=== PATIENT | male | born 1960 | race Two or more races ===

== ENCOUNTER 2020-04-22 05:47 | Day surgery (SDC) | payer BC ==
--- NOTE | 2020-04-18 11:03 | Opthalmology H&P ---
Ophthalmology H&P H&P Chief Complaint: decreased vision in right eye HPI Vision Affects Ability to: read, focus/use eyes together, manage personal affairs HPI Narrative Blurry vision Exam Visual Acuity: OD Counting fingers@2ft OS 20/60 Tension: OD 19 OS 18 Eye Exam: normal OU: external exam, palpebral fissure-width, marginal reflex distance, levator function, corneas, anterior chambers, fundus exam; findings: lens - NS Cataracts OU Assessment/Plan Treatment Plan: cataract extraction w/ lens implant Goals of Treatment: improvement of vision, enhance quality of life Attestation Attestation The risks and benefits of the surgery as well as alternative procedures were explained to the patient in detail. Temo Sloan MD Apr 18, 2020 11:03
--- NOTE | 2020-04-18 11:04 | Pre-Procedure Note/Attestation ---
Pre-Procedure Note/Attestation Complete Prior to Procedure Planned Procedure: right Procedure Narrative: Cataract extraction with IOL implant right eye Indications for Procedure Pre-Operative Diagnosis: Nuclear sclerotic cataract right eye Attestation I attest that I discussed the nature of the procedure; its benefits; risks and complications; and alternatives (and the risks and benefits of such alternatives), prior to the procedure, with the patient (or the patient's legal loss prevention representative). I attest that, if there was a reasonable possibility of needing a blood transfusion, the patient (or the patient's legal loss prevention representative) was given the [facility] standardized written summary, pursuant to the [place] Blood Safety Act ([place] Health and Safety Code # 1645, as amended). I attest that I re-evaluated the patient just prior to the surgery and that there has been no change in the patient's H&P, except as documented below: Temo lSoan MD Apr 18, 2020 11:04
[2020-04-22] VITALS (9 sets, daily range): BP systolic 124–136; BP diastolic 69–79
[~2020-04-22] VITALS: Ht 180.3 cm; Wt 86.2 kg
[2020-04-22] MEDS: Phenylephrine 10% Opth Soln 5ml RIGHT EYE SCH ×3 (06:53→07:12)
[2020-04-22] MEDS: Tobramycin Op Soln 0.3% 5ml RIGHT EYE SCH ×3 (06:54→07:12)
[2020-04-22] MEDS: Diclofenac Sod 0.1% Op Soln RIGHT EYE SCH ×3 (06:54→07:12)
[2020-04-22] MEDS: Tropicamide 1% Opth 15ml Soln RIGHT EYE SCH ×3 (06:54→07:12)
[2020-04-22] MEDS ORDERED: Tetracaine 0.5% Opth 4ml Soln RIGHT EYE ONE (07:00)
[2020-04-22] MEDS ORDERED: Proparacaine 0.5% Opth Soln 15ml RIGHT EYE ONE (07:00)
[2020-04-22] MEDS ORDERED: Maxitrol Opth Oint 3.5gm ONE (07:00)
[2020-04-22] MEDS ORDERED: Akten 3.5% 1ml Btl RIGHT EYE ONE (07:00)
[2020-04-22] MEDS ORDERED: prednisoLONE acetate 1% Opth Susp 1ml ONE (07:00)
[2020-04-22] MEDS ORDERED: LISINOPRIL5 MG ORAL (07:16)
[2020-04-22] MEDS ORDERED: ATORVASTATIN CA20 MG ORAL (07:17)
[2020-04-22] MEDS ORDERED: Sodium Chloride 10ml vial INJ ONE (07:26)
[2020-04-22] MEDS ORDERED: Lidocaine 1% MPF 10mg/ml 5ml ONE ×2 (07:26→09:30)
[2020-04-22] MEDS ORDERED: Ketamine 500mg/10ml vial ONE (07:27)
[2020-04-22] MEDS ORDERED: Midazolam 2mg/2ml Inj ONE (07:28)
--- NOTE | 2020-04-22 07:33 | Anethesia Preoperative Eval ---
Anesthesia Pre-op PMH/ROS General Date of Evaluation: Apr 22, 2020 Time of Evaluation: 09:14 Anesthesiologist: Allyssa ASA Score: ASA 3 Mallampati Score Class I : Soft palate, uvula, fauces, pillars visible Class II: Soft palate, uvula, fauces visible Class III: Soft palate, base of uvula visible Class IV: Only hard plate visible Mallampati Classification: Class II Surgeon: Nathalia Diagnosis: Cataract OD Surgical Procedure: Cat Ext IOL OD Anesthesia History: none Family History: no anesthesia problems Allergies: Coded Allergies: No Known Allergies (Unverified , 04/18/20) Medications: see eMAR Patient NPO?: Yes Past Medical History Cardiovascular: Reports: HTN, other - HL HEENT: Reports: cataract (L), cataract (R) Anesthesia Pre-op Phys. Exam Physician Exam Last Vital Signs Date Time Temp Pulse Resp B/P (MAP) Pulse Ox O2 Delivery O2 Flow Rate FiO2 04/22/20 07:13 Room Air 04/22/20 06:58 98.0 59 18 129/76 98 Constitutional: NAD Neurologic: CN 2-12 intact Cardiovascular: RRR Respiratory: CTA Gastrointestinal: S/NT/ND Airway Exam Mallampati Score: Class II MO: full ROM: limited Teeth: missing, intact Anesthesia Pre-op A/P Risk Assessment & Plan Assessment: ASA 3 Plan: GA Status Change Before Surgery: Ugo Cardona MD Apr 22, 2020 07:33
--- NOTE | 2020-04-22 07:34 | Immediate Post-Op Evaluation ---
Immediate Post-Op Evalulation Immediate Post-Op Evalulation Procedure: Cat Ext IOL OD Date of Evaluation: Apr 22, 2020 Time of Evaluation: 10:04 IV Fluids: 900 LR Blood Products: 0 Estimated Blood Loss: 1 Urinary Output: 0 Blood Pressure Systolic: 128 Blood Pressure Diastolic: 72 Pulse Rate: 53 Respiratory Rate: 16 O2 Sat by Pulse Oximetry: 100 Temperature (Fahrenheit): 97.6 Pain Score (1-10): 1 Nausea: No Vomiting: No Complications 0 Patient Status: awake, reacts, patent, none Hydration Status: adequate Ugo Spivey MD Apr 22, 2020 07:34
--- NOTE | 2020-04-22 07:35 | 48 Hour Post Anesthesia Eval ---
Post Anesthesia Evaluation Procedure: Cat Ext IOL OD Date of Evaluation: Apr 22, 2020 Time of Evaluation: 12:12 Blood Pressure Systolic: 134 0: 76 Pulse Rate: 56 Respiratory Rate: 18 Temperature (Fahrenheit): 98 O2 Sat by Pulse Oximetry: 100 Airway: patent Nausea: No Vomiting: No Pain Intensity: 1 Hydration Status: adequate Cardiopulmonary Status: Stable Mental Status/LOC: patient returned to baseline Follow-up Care/Observations: 0 Post-Anesthesia Complications: 0 Follow-up care needed: ready to discharge Ugo Spivey MD Apr 22, 2020 07:35
[2020-04-22] MEDS ORDERED: Labetalol 5mg/ml 20ml vial IV PRN (07:45)
[2020-04-22] MEDS ORDERED: Midazolam 2mg/2ml Inj IVP PRN (07:45)
[2020-04-22] MEDS ORDERED: LR 1000ml 1,000 ML IVLG SCH (07:45)
[2020-04-22] MEDS ORDERED: Metoclopramide 10mg/2ml Inj IVP PRN (07:45)
[2020-04-22] MEDS ORDERED: Atropine Sulfate 0.4mg/ml inj IVP PRN (07:45)
[2020-04-22] MEDS ORDERED: LORazepam Inj 2mg/ml 1ml IV PRN (07:45)
[2020-04-22] MEDS ORDERED: fentaNYL 100 mcg/2 mL IV PRN (07:45)
[2020-04-22] MEDS ORDERED: Meperidine 25mg/1ml Inj (FOR RIGORS ONLY) IV PRN (07:45)
[2020-04-22] MEDS ORDERED: Ketorolac 30mg Inj IV PRN ×2 (07:45)
[2020-04-22] MEDS ORDERED: HYDROcodone/Acetamin 5/325 tab ORAL PRN (07:45)
[2020-04-22] MEDS ORDERED: oxyCODONE HCL/Acetaminophen 5/325mg ORAL PRN (07:45)
[2020-04-22] MEDS ORDERED: DiphenhydrAMINE 50mg/ml Inj IVP PRN (07:45)
[2020-04-22] MEDS ORDERED: HYDROcodone/Acetamin 7.5/325 tab ORAL PRN (07:45)
[2020-04-22] MEDS ORDERED: Hydromorphone 0.5mg/0.5ml inj IVP PRN (07:45)
[2020-04-22] MEDS ORDERED: LR 1000ml ONE (09:30)
[2020-04-22] MEDS ORDERED: Sterile Water Irrig 1000ml IRRIG ONE (09:30)
[2020-04-22] MEDS ORDERED: NS Irrig 1000ml ONE (09:30)
[2020-04-22] MEDS ORDERED: BSS 500ml btl ONE (10:19)
[2020-04-22] MEDS ORDERED: BSS 15ml BTL ONE (10:19)
[2020-04-22] MEDS ORDERED: Sodium Hyaluronate 10 mg/ml 0.85ml ONE (10:19)
[2020-04-22] MEDS ORDERED: EPINEPHrine 1mg/1ml Amp ONE (10:19)
[2020-04-22] MEDS ORDERED: Povidone-Iodine 5% opth solution ONE (10:19)
--- NOTE | 2020-04-24 09:33 | Brief Operative Note ---
Immediate Post Operative Note Operative Note Chief Complaint: Blurry vision Pre-op Diagnosis: Nuclear sclerotic cataract right eye Procedure: Cataract extraction with IOL implant right eye Post-op Diagnosis: Pseudo OD Findings: consistent w/pre-op dx studies Surgeon: Temo Sloan MD Anesthesiologist: Ugo Spivey MD Anesthesia: MAC Specimen: none Complications: none Condition: stable Fluids: LR Estimated Blood Loss: none Drains: none Implant(s) used?: Yes - IOL- OD Temo Sloan MD Apr 24, 2020 09:33
--- NOTE | 2020-04-24 09:42 | Operative Note - PDOC ---
Operative Note Operative Note Date of Operation/Procedure: Apr 22, 2020 Chief Complaint: Blurry vision Pre-op Diagnosis: Nuclear sclerotic cataract right eye Procedure: Cataract extraction with IOL implant right eye Post-op Diagnosis: Pseudo OD Operative Findings: consistent w/pre-op dx studies Surgeon: Temo Sloan MD Anesthesiologist: Ugo Spivey MD Anesthesia: MAC Specimen: none Complications: none Condition: stable Fluids: LR Estimated Blood Loss: none Drains: none Implant(s) used?: Yes - IOL-OD Indications for Procedure Nuclear sclerotic cataract right eye Description of Procedure This patient has been complaining visually significant cataract in the right eye with the best corrected visual acuity of counting fingers at a 2 foot distance.The patient complains of visual imbalance causing headaches, and difficulties with glare in performing activities of daily living and wants to manage personal affairs with comfort and accuracy and see well enough to move with safety at home and outdoors independently. The risks, benefits and alternatives of the procedure were discussed with the patient in the office prior to scheduling surgery. All questions from the patient were answered after the surgical procedure was explained in detail. The risks of the procedure as explained to the patient include, but are not limited to, pain, infection, bleeding, loss of vision, retinal detachment, need for further surgery, loss of lens nucleus, double vision, etc. Alternative procedures were discussed which include, to do nothing or seek a second opinion. Informed consent for this procedure was obtained from the patient. The patient was referred to a primary care physician for a cardiopulmonary clearance prior to surgery, after proper evaluation was done patient was properly scheduled for outpatient surgery. The patient was brought to the operating room where the anesthesiologist established I.V. lines and cardiac monitoring leads. Mild intravenous sedation was administered. The patient was then prepared with a 5% solution of povidone-iodine to the conjunctival fornix and lashes, and a 5% solution of povidone-iodine to the lids and periorbital skin. The patient was then draped in the usual sterile fashion. A lid speculum was then placed in the operative eye. A keratome blade was then used to create a biplanar incision into the anterior chamber. Viscoelastics was then instilled into the anterior chamber. A 3-mm single pass clear corneal incision was made just anterior to the vascular arcade of the temporal limbus using a keratome. Anterior capsulorrhexis was created. The nucleus was hydrodissected and hydrodelineated, and was freely movable in the capsular bag. The nucleus was then phacoemulsified. Following the deep groove formation, the lens was split bimanually and epicortex removed under vacuum burst-mode phacoemulsification. Peripheral cortex was removed with the irrigation and aspiration handpiece. The capsular bag was expanded with viscoelastic. The intraocular lens was then inspected for right power and size and thought to be satisfactory. The implant was inspected under the microscope and found to be free of defects. The implant was inserted into the cartridge system under viscoelastic and placed in the capsular bag. The trailing haptic was positioned with the cartridge system. Viscoelastics was removed from the anterior chamber using the irrigation and aspiration unit. The corneal wound was then tested for leaks and none were found. The lid speculum were then removed. Sponge and needle counts were correct. An eye patch and shield were placed over the operative eye. The patient was taken to the recovery room in stable condition. There were no complications. The patient tolerated the procedure well. The patient was then transferred to the ambulatory surgery unit in stable and satisfactory condition, was given detailed written instructions and asked to follow up in the office the next day. Temo Sloan MD Apr 24, 2020 09:42
== END 2020-04-22 11:05 | disposition home or self-care (01) ==
LOC: SUR 05:47
DX: H25.11 Age-related nuclear cataract, right eye (principal); I10 Essential (primary) hypertension
CPT/HCPCS: 94003; 94150; J2250